=== PATIENT | female | born 1955 | race Caucasian/White ===

== ENCOUNTER 2019-04-05 06:56 | Emergency (ER) | payer OTHER ==
[~2019-04-05] VITALS: Ht 160 cm; Wt 72.6 kg
[2019-04-05 07:01] VITALS: BP 127/77
--- NOTE | 2019-04-05 07:10 | NUR ---
PT TAKEN TO BED 2
--- NOTE | 2019-04-05 07:12 | NUR ---
bib family C/O FEVER, CHILLS, AND DIZZINESS , lower back pain radiating to lower abdomen X1 DAY & c/o right ankle pain s/p fall x last week. denies med hx. PATIENT STATES PAIN OF 7/10 AT THIS TIME. PATIENT POSITIONED FOR COMFORT; HOB ELEVATED; BEDRAILS UP X1; BED DOWN. ER MD MADE AWARE OF PT STATUS.
--- NOTE | 2019-04-05 07:20 | NUR ---
Dr. Salguero examining patient.
[2019-04-05] MEDS ORDERED: ACETAMINOPHEN EXTRA STRENGTH 500 MG TAB PO ONE (07:25)
[2019-04-05] MEDS ORDERED: SULFAMETH/TRIMETH DS 800/160MG 1 TAB PO ONE (07:35)
--- NOTE | 2019-04-05 08:10 | NUR ---
Patient being reevaluated by DR CALLOWAY at bedside.
[2019-04-05 09:00] VITALS: BP 119/71
--- NOTE | 2019-04-05 09:00 | NUR ---
Patient discharged with v/s stable. Written and verbal after care instructions given and explained. Patient alert, oriented and verbalized understanding of instructions. Ambulatory with steady gait. All questions addressed prior to discharge. ID band removed. Patient advised to follow up with PMD. Rx of BACTRIM, TYLENOL, MOTRIN given. Patient educated on indication of medication including possible reaction and side effects. Opportunity to ask questions provided and answered.
--- NOTE | 2019-04-07 18:00 | NUR ---
POSITIVE URINE CULTURE FOR E.COLI RECEIVED FROM LAB TODAY; PT SEEN AND TREATED WITH BACTRIM 04/05/2019. REVIEWED MD NOTES AND AGREED WITH TREATMENT.
== END 2019-04-05 09:00 | disposition home or self-care (01) ==
LOC: MED 06:56
DX: S92.351A Displaced fracture of fifth metatarsal bone, right foot, initial encounter for closed fracture (principal); N39.0 Urinary tract infection, site not specified; W01.0XXA Fall on same level from slipping, tripping and stumbling without subsequent striking against object, initial encounter; Y93.89 Activity, other specified; Y92.89 Other specified places as the place of occurrence of the external cause; Y99.0 Civilian activity done for income or pay
CPT/HCPCS: 29515; 73610; 73630; 81002; 87086; 87186; 99284

== ENCOUNTER 2019-04-29 19:39 | Inpatient (IN) | payer OTHER ==
[~2019-04-29] VITALS: Ht 165.1 cm; Wt 181.4 kg
[2019-04-29 19:45] VITALS: BP 157/83
--- NOTE | 2019-04-29 20:01 | NUR ---
DR. FERNANDO EVALUATING AT BEDSIDE.
[2019-04-29] MEDS ORDERED: NACL 0.9% 1,000 ML IV ONE (20:02)
--- NOTE | 2019-04-29 20:02 | NUR ---
63 YO F BIB DAUGHTER PRESENTS TO ED C/O 5/ BODY ACHES AND CHILLS X SINCE SATURDAY. PT ALSO C/O DIFFUSE BURNING ABD PAIN THAT COMES AND GOES X SATURDAY. NOT PRESENT AT THIS TIME. PT DENIES NVD. PT IS FEBRILE; 101 PER ORAL. PT ALSO REPORTS DIFFICULTY BREATHING WHEN BODY SHAKES ARE PRESENT. PT WAS RECENTLY TREATED FOR UTI, RIGHT FOOT FX X 1 MONTH AGO. ORTHOTIC BOOT IN PLACE. -- PT AWAKE, A/O X 4. CALM, COOPERATIVE. BEHAVIOR AGE APPROPRIATE. ANSWERS QUESTIONS WITHOUT DIFFICULTY IN CLEAR, FULL SENTENCES. -- SKIN HOT, DRY, NORMAL FOR ETHNICITY. BREATHING EVEN, UNLABORED. PMH-- RIGHT FOOT FX, 03/28/19 RX-- IBUPROFEN 800 MG PRN
--- NOTE | 2019-04-29 20:06 | NUR ---
EMT PERFORMING EKG AT BEDSIDE.
[2019-04-29] MEDS ORDERED: ACETAMINOPHEN EXTRA STRENGTH 500 MG TAB PO ONE (20:15)
--- NOTE | 2019-04-29 20:15 | NUR ---
PHLEB AT BEDSIDE DRAWING LABS.
--- NOTE | 2019-04-29 20:26 | NUR ---
XRAY AT BEDSIDE.
[2019-04-29 20:34] LABS: BASOPHILS # (AUTO) 0.1 K/uL (0.00-0.22); EOSINOPHILS # (AUTO) 0.2 K/uL (0-0.4); EOSINOPHILS % (AUTO) 3.3 % (0.0-4.0); HEMATOCRIT 34.9 % (36-48); HEMOGLOBIN 11.7 g/dL (12.0-16.0); LYMPHOCYTES # (AUTO) 0.9 K/uL (2.5-16.5); LYMPHOCYTES % (AUTO) 13.8 % (20.5-51.1); MEAN CORPUSCULAR HEMOGLOBIN 29 pg (27-31); MEAN CORPUSCULAR HGB CONC 33 g/dL (33-37); MEAN CORPUSCULAR VOLUME 87.2 fL (80-94); MONOCYTES # (AUTO) 0.2 K/uL (0.8-1.0); MONOCYTES % (AUTO) 3.4 % (1.7-9.3); NEUTROPHILS # (AUTO) 5.2 K/uL (1.8-7.7); NEUTROPHILS % (AUTO) 77.5 % (42.2-75.2); PLATELET COUNT (AUTO) 254 K/uL (140-450); RED BLOOD CELL COUNT(AUTO) 4.01 MIL/uL (4.20-5.40); RED CELL DISTRIBUTION WIDTH 13.7 % (11.6-13.7); WHITE BLOOD COUNT (AUTO) 6.7 K/uL (4.8-10.8)
--- NOTE | 2019-04-29 20:36 | NUR ---
FLU SWAB COLLECTED.
[2019-04-29 20:45] LABS: ANION GAP 16.8 (8-16); CARBON DIOXIDE 21.7 mmol/L (21-32); CREATININE 0.9 mg/dL (0.6-1.3); POTASSIUM 3.5 mmol/L (3.5-5.1)
[2019-04-29 20:52] LABS: BILIRUBIN,URINE 1+ (NEGATIVE); BLOOD, URINE TRACE-I (NEGATIVE); COLOR,URINE YELLOW (YELLOW); LEUKOCYTE ESTERASE ,URINE 2+ (NEGATIVE); NITRITE, URINE POSITIVE (NEGATIVE); UGLUCOSE NEGATIVE (NEGATIVE)
[2019-04-29 20:54] LABS: APPEARANCE,URINE CLOUDY (CLEAR)
[2019-04-29] MEDS ORDERED: NACL 0.9% 1,500 ML IV ONE (21:00)
[2019-04-29 21:02] LABS: ALBUMIN 2.9 g/dL (3.4-5.0); TOTAL BILIRUBIN 0.7 mg/dL (0.0-1.0)
[2019-04-29 21:07] LABS: RBC,URINE 0-5 /HPF (0-5); WBC,URINE TOO MANY TO COUNT /HPF (0-5)
[2019-04-29] MEDS ORDERED: cefTRIAXone 1,000 MG VIAL ONE (21:14)
--- NOTE | 2019-04-29 21:51 | NUR ---
PT RESTING COMFORTABLY WITH VSS. FLUIDS INFUSING. DENIES PAIN/DISCOMFORT AT THIS TIME. DAUGHTER AT BEDSIDE.
[2019-04-29] MEDS ORDERED: IBUP-2213 PO (22:44)
[2019-04-29 22:56] VITALS: BP 110/60
--- NOTE | 2019-04-29 22:56 | NUR ---
RECIEVED PT FROM ER PER WHEELCHAIR , AAOX4 , WITH BEARABLE PAIN , FEBRILE , NID . AMBULATES TO BED . ADMISSION ASSESSMENT DONE , MRSA SPECIMEN COLLECTED AND SENT TO LAB. ON REG DIET INSTRUCTED . PLAN OF CARE DISCUSSED AND VERBALIZE UNDERSTANDING - CALL LIGHT WITHIN REACH. WEARING ORTHO BOOT ON RIGHT FOOT - HAD KNEE SURGERY LAST MAR.-ON SAFETY/FALL PRECAUTION PROTOCOL - BED ALARM ON . WILL CONT. TO MONITOR.
--- NOTE | 2019-04-29 23:00 | NUR ---
Patient will be admitted to care of Dr. Cooley. Admited to Med Surg. Will go to room 105B. Belongings list completed. Report to PHIL Polo.
--- NOTE | 2019-04-30 | NUR ---
MADE ROUNDS , VOIDED FREELY WILL CONT. TO MONITOR.- STILL FEBRILE - ENCOURAGED ORAL FLD. INTAKE.
[2019-04-30] MEDS: ACETAMINOPHEN 325 MG TAB PO PRN ×3 (01:45→17:41)
--- NOTE | 2019-04-30 02:00 | NUR ---
MADE ROUNDS - SLEEPING - CHEST RISE AND FALL EQUALLY - CALL LIGHT WITHIN REACH.
[2019-04-30 04:00] VITALS: BP 110/60
[2019-04-30] MEDS: NACL 0.9% 1,000 ML IV SCH ×3 (04:00→21:55)
--- NOTE | 2019-04-30 04:00 | NUR ---
MADE ROUNDS . NO SIGNS OF ACUTE DISTRESS NOTED AT THIS TIME.WILL CONT. TO MONITOR.
[2019-04-30 07:00] LABS: BASOPHILS # (AUTO) 0.1 K/uL (0.00-0.22); BASOPHILS % (AUTO) 0.4 % (0.0-2.0); EOSINOPHILS # (AUTO) 0.2 K/uL (0-0.4); EOSINOPHILS % (AUTO) 1.1 % (0.0-4.0); HEMATOCRIT 32.7 % (36-48); HEMOGLOBIN 10.9 g/dL (12.0-16.0); LYMPHOCYTES % (AUTO) 13.9 % (20.5-51.1); MEAN CORPUSCULAR HEMOGLOBIN 29 pg (27-31); MEAN CORPUSCULAR HGB CONC 34 g/dL (33-37); MEAN CORPUSCULAR VOLUME 87.2 fL (80-94); MONOCYTES # (AUTO) 1.2 K/uL (0.8-1.0); NEUTROPHILS # (AUTO) 11.1 K/uL (1.8-7.7); NEUTROPHILS % (AUTO) 76.6 % (42.2-75.2); PLATELET COUNT (AUTO) 243 K/uL (140-450); RED BLOOD CELL COUNT(AUTO) 3.75 MIL/uL (4.20-5.40); RED CELL DISTRIBUTION WIDTH 13.8 % (11.6-13.7); WHITE BLOOD COUNT (AUTO) 14.5 K/uL (4.8-10.8)
--- NOTE | 2019-04-30 07:10 | NUR ---
RECEIVED REPORT FROM NIGHT NURSE. PATIENT IS IN STABLE CONDITION. IV INTACT AND PATENT TO LEFT AC WITH IVF NS INFUSING AT 100ML/HR. NO S/S DISTRESS NOTED. WILL CONTINUE TO MONITOR. BED IN LOW POSITION. SAFETY MEASURES IN PLACE.
--- NOTE | 2019-04-30 07:10 | NUR ---
ENDORSED TO AM SHIFT WITH STABLE CONDITION.
[2019-04-30 08:00] VITALS: BP 133/86
--- NOTE | 2019-04-30 08:00 | NUR ---
PT AMBULATED TO THE BATHROOM WITH MINIMAL ASSIST BY STAFF.
--- NOTE | 2019-04-30 08:38 | NUR ---
PATIENT HAS BEEN SCREENED AND CATEGORIZED LOW NUTRITION RISK. PATIENT WILL BE SEEN WITHIN 7 DAYS OF ADMISSION. 05/06/[address]
[2019-04-30] MEDS: PANTOPRAZOLE 40 MG TABEC PO SCH (08:45)
--- NOTE | 2019-04-30 10:00 | NUR ---
PATIENT IS IN BED, WITH HOB ELEVATED. ALERT AND VERBALLY RESPONSIVE. DENIES PAIN OR DISCOMFORT. FAMILY AT BEDSIDE.
--- NOTE | 2019-04-30 10:45 | NUR ---
DC PLANNING: THIS IS A 63 YO FEMALE PATIENT FROM HOME, ADMITTED DUE TO INTERMITTENT CHEST PAIN WITH ASSOCIATED BODY ACHES X4 DAYS. NO SIGNIFICANT PAST MEDICAL HISTORY. LACTIC ACID 3.1 WAS ELEVATED ON ADMISSION, TODAY IS TRENDING DOWN 2.1. WBC 14.5, ON ROCEPHINE 1000 MG Q24H. DC PLAN PENDING ON PATIENT'S RESPONSE TO TREATMENT.
--- NOTE | 2019-04-30 12:30 | NUR ---
PATIENT IS IN BED WITH HOB ELEVATED, EATING LUNCH. NO S/S OF DISTRESS NOTED. FAMILY AT BESIDE.
--- NOTE | 2019-04-30 14:00 | NUR ---
PATIENT IS IN BED WITH HOB ELEVATED. NO S/S OF DISTRESS NOTED. IV INTACT AND PATENT TO LEFT AC WITH IVF NS INFUSING AT 100ML, TOLERATING WELL. WILL CONTINUE TO MONITOR.
[2019-04-30 16:00] VITALS: BP 121/64
--- NOTE | 2019-04-30 17:40 | NUR ---
PATIENT REPORTS CHILLS, NOTED TEMP OF 100.0. TYLENOL GIVEN ORDERED PRN. PATIENT CONTINUES TO BE ALERT AND ORIENTED X4. RESPIRATION EVEN AND UNLABORED. AT BEDSIDE.
--- NOTE | 2019-04-30 19:00 | NUR ---
PATIENT IS IN STABLE CONDITION. WILL ENDORSE CONTINUITY OF CARE TO LEASE OPERATOR NURSE.
--- NOTE | 2019-04-30 22:35 | NUR ---
DC LEFT AC IV, INSERTED NEW IV ON RIGHT HAND 22G. PT TOLERATED IT WELL. C/O MODERATE BACK PAIN. WILL PAGE MD FOR PAIN MEDICATION ORDER. WILL CONTINUE TO MONITOR PT.
[2019-05-01] VITALS: BP 120/64
[2019-05-01] MEDS: IBUPROFEN 400 MG TAB PO PRN ×4 (00:23→21:35)
--- NOTE | 2019-05-01 00:23 | NUR ---
VS CHECKED AND CHARTED. PT C/O MODERATE BACK PAIN. RECEIVED ORDER FROM DR. RIVER FOR IBUPROFEN 400MG Q6H PRN FOR MODERATE PAIN. ADMINISTERED PRN PO PAIN MEDICATION ORDERED. ADMINISTERED SCHEDULED IV ABX ORDERED. ASSISTED PT TO THE RESTROOM, PT TOLERATED ACTIVITY WELL. WILL CONTINUE TO MONITOR PT.
--- NOTE | 2019-05-01 02:00 | NUR ---
MADE ROUNDS. PT LYING DOWN ASLEEP, WITH NO SIGNS OF DISTRESS. WILL CONTINUE TO MONITOR PT.
--- NOTE | 2019-05-01 04:30 | NUR ---
MADE ROUNDS. ASSISTED PT TO THE RESTROOM. PT TOLERATED ACTIVITY WELL. WILL CONTINUE TO MONITOR PT.
[2019-05-01 06:05] LABS: BASOPHILS # (AUTO) 0.1 K/uL (0.00-0.22); BASOPHILS % (AUTO) 0.6 % (0.0-2.0); EOSINOPHILS # (AUTO) 0.3 K/uL (0-0.4); EOSINOPHILS % (AUTO) 1.8 % (0.0-4.0); HEMATOCRIT 30.1 % (36-48); LYMPHOCYTES % (AUTO) 21.3 % (20.5-51.1); MEAN CORPUSCULAR HEMOGLOBIN 29 pg (27-31); MEAN CORPUSCULAR HGB CONC 33 g/dL (33-37); MEAN CORPUSCULAR VOLUME 87.2 fL (80-94); MONOCYTES # (AUTO) 1.5 K/uL (0.8-1.0); MONOCYTES % (AUTO) 10.6 % (1.7-9.3); NEUTROPHILS # (AUTO) 9.2 K/uL (1.8-7.7); NEUTROPHILS % (AUTO) 65.7 % (42.2-75.2); PLATELET COUNT (AUTO) 238 K/uL (140-450); RED BLOOD CELL COUNT(AUTO) 3.46 MIL/uL (4.20-5.40); RED CELL DISTRIBUTION WIDTH 13.6 % (11.6-13.7)
[2019-05-01] MEDS: PANTOPRAZOLE 40 MG TABEC PO SCH (06:11)
--- NOTE | 2019-05-01 06:11 | NUR ---
ADMINISTERED SCHEDULED PO MEDICATION AND HUNG NEW IV FLUID. ASSISTED PT TO THE RESTROOM. PT TOLERATED THEM WELL. PT REPORTS TOLERABLE PAIN. ENCOURAGED PT TO INFORM RN IF PAIN INCREASES. WILL ENDORSE TO AM SHIFT RN FOR PT'S CONTINUITY OF CARE.
[2019-05-01] MEDS: NACL 0.9% 1,000 ML IV SCH ×2 (06:12→17:22)
[2019-05-01 06:20] LABS: ALBUMIN 2.2 g/dL (3.4-5.0); ANION GAP 14.1 (8-16); CARBON DIOXIDE 22.1 mmol/L (21-32); CREATININE 0.7 mg/dL (0.6-1.3); POTASSIUM 3.2 mmol/L (3.5-5.1); TOTAL BILIRUBIN 0.6 mg/dL (0.0-1.0)
--- NOTE | 2019-05-01 07:10 | NUR ---
RECEIVED REPORT FROM FAMILY SUPPORT COORDINATOR NURSE. PT AAOX4, C/O LEVEL 11/24 BACK, WILL MEDICATE PT PER ORDER. IV ON RT HAND 22 GA RUNNING IVF PER ORDER. RESPIRATIONS EVEN AND UNLABORED ON RA. ABD SOFT, ACTIVE BS. SAFETY MEASURES IN PLACE, CALL LIGHT WITHIN REACH. REVIEWED POC WITH PT AND FAMILY, VERBALIZED UNDERSTANDING.
[2019-05-01 08:00] VITALS: BP 132/69
--- NOTE | 2019-05-01 09:30 | NUR ---
PT NO LONGER COMPLAINS OF PAIN. PT HAS NO SIGNS OF DISTRESS AT THIS TIME.
--- NOTE | 2019-05-01 11:35 | NUR ---
ADMINISTERED ROCEPHIN PER ORDER, PT IS AWARE OF INDICATIONS AND POTENTIAL SIDE EFFECTS.
[2019-05-01] MEDS ORDERED: CIPR500T4 PO (11:47)
--- NOTE | 2019-05-01 13:40 | NUR ---
GIVEN PT CLEAN GOWN, CHANGED LINENS AND DANIELLA PADS PER PT REQUEST. GIVEN SPONGE BATH SUPPLIES, SISTER IS AT BEDSIDE TO ASSIST.
[2019-05-01 16:00] VITALS: BP 126/78
--- NOTE | 2019-05-01 16:30 | NUR ---
PT IS RESTING IN BED, VS WITHIN NORMAL LIMITS AT THIS TIME. NO C/O PAIN.
--- NOTE | 2019-05-01 17:22 | NUR ---
ADMINISTERED IVF PER ORDER. IV SITE IS INTACT, DRESSING CLEAN AND DRY. PT HAS NO C/O PAIN.
--- NOTE | 2019-05-01 19:20 | NUR ---
ENDORSED PT TO PRODUCT MGR NURSE. PT HAS NO SIGNS OF DISTRESS AT THIS TIME.
--- NOTE | 2019-05-01 19:26 | NUR ---
PAGED DR. TORREZ TO REPORT PT'S POTASSIUM LEVEL, AWAITING CALL BACK.
--- NOTE | 2019-05-01 19:27 | NUR ---
RECEIVED REPORT FROM BANKING SPECIALIST NURSE. PT AAOX4, AMBULATORY WITH ORTHO BOOT ON THE R FOOT, INTACT.IV ON RT HAND 22 GA RUNNING IVF PER ORDER. RESPIRATIONS EVEN AND UNLABORED. PATIENT ON RA. ABD SOFT, ACTIVE BS. SAFETY MEASURES IN PLACE, CALL LIGHT WITHIN REACH. REVIEWED POC WITH PT AND , VERBALIZED UNDERSTANDING.
[2019-05-01 20:00] VITALS: BP 119/72
[2019-05-01] MEDS ORDERED: POTASSIUM CHLORIDE 10 MEQ TABER PO ONE (20:12)
[2019-05-01] MEDS ORDERED: POTASSIUM CHLORIDE 10 MEQ TABER PO SCH (21:00)
--- NOTE | 2019-05-01 21:35 | NUR ---
C/O OF PAIN ON THE LEFT SHOULDER AND THE BACK 10/24 WILL MEDICATE
--- NOTE | 2019-05-01 21:41 | NUR ---
SPOKE TO DAUGHTER MATT [phone], ASKING HOW HER MOM IS DOING, EXPLAINED TO HER POTASSIUM LEVEL 3.2 AND WE GAVE 40 MEQS OF POTASSIUM
--- NOTE | 2019-05-01 21:44 | NUR ---
DAUGHTER GALI CALLED [phone] WANTED TO TALK TO DR. BAEZA. WILL ENDORSE TO NEXT SHIFT
--- NOTE | 2019-05-01 22:37 | NUR ---
LAB CALLED THROUGH CHARGE NURSE AND LAB REPORTED FROM [facility] THAT PER LATEST URINE CULTURE PT IS ON ISOLATION FOR MDRO OF THE URINE.WILL INFORM DR. BAEZA
--- NOTE | 2019-05-01 22:38 | NUR ---
PLACED PATIENT ON ISOLATION FOR MDRO URINE. SIGNS POSTED, ISOLATION
--- NOTE | 2019-05-01 22:47 | NUR ---
CALLED [facility] FOR PROCESSING ANALYST OF DR. BAEZA. WILL REPORT LAB RESULT
--- NOTE | 2019-05-01 23:23 | NUR ---
NO CALL BACK FROM DR. BAEZA MORE THAN 30 MINS ALREADY, JUANITO CALLED THE [facility] TO CONTACT TRIPLE DRUM OPERATOR DR. DR. TORREZ FOR DR. VISHAL BAEZA RE: MDRO URINE
--- NOTE | 2019-05-01 23:54 | NUR ---
CALLED AGAIN EXCHANGE SERVICE DR. TORREZ, AND THEY CONNECTED ME TO DR. TORREZ. INFORMED DR. TORREZ THAT PT HAS AN MDRO OF THE URINE PER RESULT OF THE URINE CULTURE. DR. TORREZ SAID TO LET DR. BAEZA KNOW TMRW AM WHAT TYPE OF THE ANTIBIOTIC HE WILL USE FOR THE MDRO URINE. DR. TORREZ AWARE PT IS ON ROCEPHIN Q 12 AND WILL HAVE HIS 4TH DOSE MIDNIGHT.
--- NOTE | 2019-05-02 | NUR ---
PT SLEEPING AT THIS TIME, NO COMPLAINTS. ASSISTED TO THE BATHROOM, ABLE TO AMBULATE WITH MINIMAL ASSIST
--- NOTE | 2019-05-02 02:00 | NUR ---
PT SLEEPING NOT IN RESPIRATORY DISTRESS WILL CONTINUE TO MONITOR
--- NOTE | 2019-05-02 04:15 | NUR ---
PT SLEEPING BUT EASILY AROUSABLE, WILL CONTINUE TO MONITOR. NO COMPLAINTS OF PAIN
[2019-05-02] MEDS: NACL 0.9% 1,000 ML IV SCH (04:27)
[2019-05-02] MEDS: PANTOPRAZOLE 40 MG TABEC PO SCH (05:35)
--- NOTE | 2019-05-02 06:59 | NUR ---
PT SLEEPING NOW, PT EASILY AROUSABLE TO VERBAL STIMULI, NOT IN RESPIRATORY DISTRESS, PT IN STABLE CONDITION.WILL ENDORSE TO NEXT SHIFT
--- NOTE | 2019-05-02 07:15 | NUR ---
RECEIVED REPORT FROM INTENSIVE CARE SPECIALIST NURSE. PT IS AWAKE AND ORIENTED. NO SIGNS OF DISTRESS. PT ON ROOM AIR. IV ON R WRIST 22G AND NS AT 100 ML INFUSING. SKIN INTACT. PT DOES HAVE A R BOOT ON HER FOOT. PER PT SHE HAS A FRACTURE. DENIES PAIN. V/S WITHIN NORMAL RANGE. LBM 05/01. PT IS ON CONTACT ISOLATION FOR MDRO OF URINE. WILL CONTINUE TO MONITOR PT.
[2019-05-02 07:16] LABS: BASOPHILS # (AUTO) 0.1 K/uL (0.00-0.22); BASOPHILS % (AUTO) 0.5 % (0.0-2.0); EOSINOPHILS # (AUTO) 0.3 K/uL (0-0.4); EOSINOPHILS % (AUTO) 2.6 % (0.0-4.0); HEMATOCRIT 31.4 % (36-48); HEMOGLOBIN 10.6 g/dL (12.0-16.0); LYMPHOCYTES # (AUTO) 2.9 K/uL (2.5-16.5); LYMPHOCYTES % (AUTO) 26.8 % (20.5-51.1); MEAN CORPUSCULAR HEMOGLOBIN 30 pg (27-31); MEAN CORPUSCULAR HGB CONC 34 g/dL (33-37); MEAN CORPUSCULAR VOLUME 87.7 fL (80-94); MONOCYTES # (AUTO) 1.1 K/uL (0.8-1.0); MONOCYTES % (AUTO) 10.6 % (1.7-9.3); NEUTROPHILS # (AUTO) 6.4 K/uL (1.8-7.7); NEUTROPHILS % (AUTO) 59.5 % (42.2-75.2); PLATELET COUNT (AUTO) 267 K/uL (140-450); RED BLOOD CELL COUNT(AUTO) 3.58 MIL/uL (4.20-5.40); RED CELL DISTRIBUTION WIDTH 13.9 % (11.6-13.7); WHITE BLOOD COUNT (AUTO) 10.7 K/uL (4.8-10.8)
[2019-05-02 07:21] LABS: ALBUMIN 2.3 g/dL (3.4-5.0); ANION GAP 12.8 (8-16); CARBON DIOXIDE 22.8 mmol/L (21-32); CREATININE 0.6 mg/dL (0.6-1.3); POTASSIUM 3.6 mmol/L (3.5-5.1); TOTAL BILIRUBIN 0.5 mg/dL (0.0-1.0)
[2019-05-02 08:00] VITALS: BP 154/88
--- NOTE | 2019-05-02 10:00 | NUR ---
DR MOTA HERE TO SEE PT. PER MD, PT IS STABLE TO BE DISCHARGED. WILL NOTIFY PT AND WILL START D/C PROCESS.
--- NOTE | 2019-05-02 11:28 | NUR ---
ADMINISTERED LAST DOSE OF ROCEPHIN BEFORE D/C. PT IS TOLERATING WELL. WILL CONTINUE TO MONITOR PT.
--- NOTE | 2019-05-02 12:40 | NUR ---
DC INSTRUCTIONS GIVEN. SPOUSE AT BEDSIDE. VERBALIZED UNDERSTANDING. GAVE THE RX FOR ABX, CIPRO AND APPT CARD. REMOVED IV. PT WILL GET DRESSED. GATHER HER BELONGINGS AND EAT HER LUNCH. WILL LET ME KNOW WHEN SHE IS READY TO GO. WILL CONTINUE TO MONITOR PT.
--- NOTE | 2019-05-02 13:35 | NUR ---
PT WHEELED OUT TO THE CAR BY RN STUDENT. PT ACCOMPANIED BY SPOUSE. ALL BELONGINGS WITH PT. PT IN STABLE CONDITION.
== END 2019-05-02 13:35 | disposition home or self-care (01) | DRG 720 ==
LOC: MED 19:39 → MTU 22:21
PROVIDERS: ADMIT Internal Medicine Pulmonary Disease; ATTEND Internal Medicine Pulmonary Disease
DX: A41.51 Sepsis due to Escherichia coli [E. coli] (principal); E44.0 Moderate protein-calorie malnutrition; N10 Acute pyelonephritis; R73.9 Hyperglycemia, unspecified; Z79.899 Other long term (current) drug therapy; Z90.49 Acquired absence of other specified parts of digestive tract
CPT/HCPCS: 36415; 71045; 80053; 81001; 83605; 83690; 84484; 85025; 87040; 87081; 87086; 87186; 87804; 93005; 96361; 96365; 99285; J0696; J7030; J7060; Q0092

== ENCOUNTER 2023-08-02 16:05 | Emergency (ER) | payer OTHER, MEDICAID ==
[~2023-08-02] VITALS: Ht 162.6 cm; Wt 71.7 kg
[~2023-08-02 16:05] MED LIST: CIPR500T4 PO; IBUP-2213 PO
[2023-08-02 16:14] VITALS: BP 138/71; PULSE 79; RESP 16; TEMP 98.2; O2SAT 96
[2023-08-02] MEDS: HYDROcodone/APAP 5/325 MG 1 TAB TAB PO ONE (17:03)
[2023-08-02] MEDS ORDERED: ACET-8905 PO (18:24)
[2023-08-02] MEDS ORDERED: LID5T TP (18:24)
[2023-08-02 18:30] VITALS: BP 138/71; PULSE 79; RESP 16; TEMP 98.2; O2SAT 96
== END 2023-08-02 18:30 | disposition home or self-care (01) ==
LOC: MED 16:05
DX: M25.562 Pain in left knee (principal); M77.8 Other enthesopathies, not elsewhere classified; E11.9 Type 2 diabetes mellitus without complications; I10 Essential (primary) hypertension; Z79.899 Other long term (current) drug therapy
CPT/HCPCS: 73030; 73562; 99284; Q0092